=== PATIENT | male | born 1950 | race Caucasian/White ===

== ENCOUNTER → 2018-11-24 | Outpatient (CLI) | payer MEDICARE, OTHER | END | disposition home or self-care (01) | LOC: PLD 10:24 → LAB SHORT 10:24 | DX: C44.41 Basal cell carcinoma of skin of scalp and neck (principal) | CPT/HCPCS: 88305 ==

== ENCOUNTER → 2018-12-08 | Outpatient (CLI) | payer MEDICARE, OTHER | END | disposition home or self-care (01) | LOC: LAB SHORT 15:44 → PLD 15:44 | DX: D48.5 Neoplasm of uncertain behavior of skin (principal) | CPT/HCPCS: 88305 ==

== ENCOUNTER 2019-03-10 08:25 | Day surgery (SDC) | payer MEDICARE, OTHER ==
[~2019-03-10] VITALS: Ht 160 cm; Wt 65.5 kg
[~2019-03-10 08:25] MED LIST: THERA1 EACH PO
--- NOTE | 2019-03-10 09:01 | NUR ---
History, Chart, Medications and Allergies reviewed before start of procedure. Patient confirms NPO status and agrees with scheduled surgery. Pre-Op teaching done. Pt verbalizes understanding. Patient reports completing Chlorhexadine shower X2 prior to admission to hospital. Patient States Post-Procedure ride home has been arranged. LUNGS WITH SOME SCATTERED EXPIRATORY WHEEZES, SOME CLEARED WITH COUGH, SOME DID NOT. NO JEWELRY PRESENT AT ADMIT, NO CONTACTS OR GLASSES PRESENT, DENIES DENTURES.
--- NOTE | 2019-03-10 09:31 | NUR ---
TRACKER EXPLAINED AND OPPORTUNITY FOR QUESTIONS PROVIDED.
--- NOTE | 2019-03-10 09:38 | NUR ---
UPDATED PATIENT AND VISITOR.
--- NOTE | 2019-03-10 14:08 | NUR ---
Patient up to Ambulate independently. Gait steady. Discharged via wheelchair to private car for ride home. Discharge instructions reviewed with patient. Patient verbalizes understanding. Copy given to patient to take home.
[2019-03-14] MEDS ORDERED: Norco 5-325 Ta1 EACH PO (11:22)
== END 2019-03-10 23:15 | disposition home or self-care (01) ==
LOC: ORSCMMR 08:25 → ORD 10:00 → ORSCMMR 10:00
PROVIDERS: Surgery
PROC: 8E0W4CZ Robotic Assisted Procedure of Trunk Region, Percutaneous Endoscopic Approach (ICD-10-PCS; principal; 2019-03-10 10:00)
PROC: 0YUA4JZ Supplement Bilateral Inguinal Region with Synthetic Substitute, Percutaneous Endoscopic Approach (ICD-10-PCS; principal; 2019-03-10 10:00)
DX: K40.20 Bilateral inguinal hernia, without obstruction or gangrene, not specified as recurrent (principal); Z87.891 Personal history of nicotine dependence
CPT/HCPCS: 49650; S2900; A9270-GY; C1781; J0690; J1100; J1885; J2250; J2405; J2704; J2710; J3010; J7120

== ENCOUNTER 2019-03-11 19:21 | Emergency (ER) | payer MEDICARE, OTHER ==
[~2019-03-11] VITALS: Ht 160 cm; Wt 60.3 kg
[2019-03-11 23:17] LABS: Source, Urine Catheter
[2019-03-11 23:20] LABS: Bilirubin, Urine Neg (Neg); Blood, Urine 1+ (Neg); Glucose Qualitative, Urine Neg (Neg); Ketones, Urine Neg (Neg); Leukocyte Esterase, Urine Neg (Neg); Nitrite, Urine Neg (Neg); Protein, Urine Neg (Neg); Urobilinogen, Urine NORM (Normal)
[2019-03-11 23:30] LABS: Appearance, Urine Clear (Clear); Color, Urine Yellow (P-Yellow)
[2019-03-11 23:31] LABS: Bacteria Not Seen /hpf; Red Blood Cells, Urine 0-2 /hpf (0-2); Squamous Epithelial Cells Not Seen /hpf (Few); White Blood Cells, Urine Not Seen /hpf (0-5)
[2019-03-14] MEDS ORDERED: Norco 5-325 Ta1 EACH PO (11:22)
== END 2019-03-11 21:54 | disposition home or self-care (01) ==
LOC: ER 19:21
PROVIDERS: Emergency Medicine
DX: N99.89 Other postprocedural complications and disorders of genitourinary system (principal); R33.9 Retention of urine, unspecified
CPT/HCPCS: 51702; 51798; 81001; 99283-25

== ENCOUNTER → 2019-07-20 | Outpatient (CLI) | payer MEDICARE, OTHER ==
[~2019-07-20] MED LIST changes: +Norco 5-325 Ta1 EACH PO
== END | disposition home or self-care (01) ==
LOC: PLD 11:53 → LAB SHORT 11:53
DX: L72.8 Other follicular cysts of the skin and subcutaneous tissue (principal)
CPT/HCPCS: 88305

== ENCOUNTER 2020-03-30 15:28 | Emergency (ER) | payer MEDICARE, OTHER ==
[~2020-03-30] VITALS: Ht 162.6 cm; Wt 63.5 kg
[2020-03-30 16:31] LABS: BASOPHILS ABSOLUTE AUTO 0.08 K/mm3 (0.00-0.23); BASOPHILS PERCENT AUTO 1 % (0-2); EOSINOPHILS ABSOLUTE AUTO 0.52 K/mm3 (0.00-0.68); EOSINOPHILS PERCENT AUTO 6 % (0-6); Hematocrit 44.8 % (37.0-53.0); Hemoglobin 14.6 g/dL (13.5-17.5); IMMATURE GRAN ABSOLUTE AUTO 0.02 K/mm3 (0.00-0.10); IMMATURE GRAN PERCENT AUTO 0 % (0-1); LYMPHOCYTES ABSOLUTE AUTO 1.88 K/mm3 (0.84-5.20); LYMPHOCYTES PERCENT AUTO 22 % (21-46); MONOCYTES ABSOLUTE AUTO 0.69 K/mm3 (0.16-1.47); MONOCYTES PERCENT AUTO 8 % (4-13); Mean Corpuscular HGB 29.2 pg (26.0-34.0); Mean Corpuscular HGB Conc 32.6 g/dL (31.5-36.5); Mean Corpuscular Volume 90 fL (80-100); Mean Platelet Volume 8.9 fL (9.1-12.4); NEUTROPHILS PERCENT AUTO 63 % (41-73); Platelet Count 345 K/mm3 (150-400); RDW Coefficient Variation 13.6 % (11.7-14.2); RDW Standard Deviation 44.8 fL (35.1-46.3); White Blood Cell Count 8.49 K/mm3 (4.00-11.30)
[2020-03-30 16:52] LABS: Alanine Aminotransfer (ALT/SGP 19 U/L (12-78); Albumin, Blood 3.5 g/dL (3.4-5.0); Albumin/Globulin Ratio 1.1 (0.8-1.8); Alk Phos 78 U/L (50-136); Anion Gap 3 mmol/L (6-16); Aspartate Aminotrans (AST/SGOT 21 U/L (12-37); Bilirubin, Total 0.2 mg/dL (0.1-1.0); Blood Urea Nitrogen 21 mg/dL (8-24); Bun/Creatinine Ratio 18.1 (12.0-20.0); CO2, Blood 27 mmol/L (21-32); Calcium, Blood 9.1 mg/dL (8.5-10.1); Chloride, Blood 111 mmol/L (98-108); Creatinine, Blood 1.16 mg/dL (0.60-1.20); Globulin, Blood 3.1 g/dL (2.2-4.0); Glomerular Filtration Rate >60 (60-); Glucose, Blood 97 mg/dL (70-99); Potassium, Blood 4.3 mmol/L (3.5-5.5); Sodium, Blood 141 mmol/L (136-145); Total Protein, Blood 6.6 g/dL (6.4-8.2); Troponin I <0.015 ng/mL (0.000-0.040)
[2020-03-30] MEDS ORDERED: Aspir 8181 MG PO (18:13)
== END 2020-03-30 18:18 | disposition home or self-care (01) ==
LOC: ER 15:28
PROVIDERS: Physician Assistant
DX: Z00.00 Encounter for general adult medical examination without abnormal findings (principal); R42 Dizziness and giddiness
CPT/HCPCS: 36415; 71046; 80053; 84484; 85025; 93005; 93010; 99285-25

== ENCOUNTER → 2020-12-02 | Outpatient (CLI) | payer MEDICARE, OTHER ==
[~2020-12-02] MED LIST changes: +Aspir 8181 MG PO
== END ==
LOC: LAB SHORT 12:28 → LAB 12:28
DX: D48.5 Neoplasm of uncertain behavior of skin (principal); L72.0 Epidermal cyst
CPT/HCPCS: 88305

== ENCOUNTER → 2020-12-26 | Outpatient (CLI) | payer MEDICARE, OTHER | END | disposition home or self-care (01) | LOC: LAB SHORT 10:49 → LAB 10:49 | DX: L72.0 Epidermal cyst (principal) | CPT/HCPCS: 88304 ==

== ENCOUNTER → 2023-01-07 | Outpatient (CLI) | payer MEDICARE, OTHER | LOC: PLD 15:06 → LAB SHORT 15:06 | DX: L72.8 Other follicular cysts of the skin and subcutaneous tissue (principal) | CPT/HCPCS: 88304 ==

== ENCOUNTER 2023-10-28 06:11 | Inpatient (IN) | payer OTHER ==
[~2023-10-28] VITALS: Ht 162.6 cm; Wt 63.1 kg
[2023-10-28] VITALS (16 sets, daily range): BP systolic 109–155; BP diastolic 60–88
[~2023-10-28 06:11] MED LIST changes: +CENTRUM SILVER1 EAC2 PO
[2023-10-28] MEDS ORDERED: Ondansetron HCl 2 MG / ML 2ML Vial ONE (06:24)
[2023-10-28] MEDS ORDERED: FentaNYL Citrate 50 MCG/ML 2 ML Injection ONE ×3 (06:24→11:07)
[2023-10-28] MEDS ORDERED: Sugammadex Sodium 200 MG/2ML SDV (100 MG/ML) ONE (06:24)
[2023-10-28] MEDS ORDERED: propofoL 20 ML IV ONE (06:24)
[2023-10-28] MEDS ORDERED: Rocuronium Bromide 10 MG/ML 5ML Injection IV ONE ×2 (06:24→08:43)
[2023-10-28] MEDS ORDERED: Lidocaine HCl 2% 20 ML MDV ONE (06:24)
[2023-10-28] MEDS ORDERED: Dexamethasone Sod Phos 10 MG/ML 1ML VIAL ONE (06:24)
[2023-10-28] MEDS ORDERED: Heparin Sodium,Porcine 5,000 UNIT/0.5 ML SDV SC ONE (06:25)
[2023-10-28] MEDS ORDERED: CeFAZolin Sodium 2,000 MG in NS 100 ML IV SCH ×2 (06:25→16:00)
[2023-10-28] MEDS ORDERED: Lactated Ringer's 1,000 ML IV SCH ×2 (06:25→10:50)
[2023-10-28] MEDS ORDERED: MetroNIDAZOLE 500MG/NS 100 ml 100 ML IV SCH ×2 (06:25→16:00)
[2023-10-28] MEDS ORDERED: Acetaminophen 500 MG Tab PO SCH (06:25)
--- NOTE | 2023-10-28 06:47 | NUR ---
Ambulatory in Day Surgery History, Chart, Medications and Allergies reviewed before start of procedure.Lungs clear T/O to Auscultation. Patient confirms NPO status and agrees with scheduled surgery. Patient reports completing Chlorhexadine shower X2 prior to admission to hospital.Surgical site prepped with 2% Chlorhexidine cloth wipe.
[2023-10-28] MEDS ORDERED: Bupivacaine 0.5% HCl 5 MG/ML 30MLVIAL ONE (08:18)
[2023-10-28] MEDS ORDERED: Ondansetron HCl 2 MG / ML 2ML Vial IV PRN (10:50)
[2023-10-28] MEDS ORDERED: HYDROmorphone HCl/Pf 1MG SYR IV PRN (10:50)
[2023-10-28] MEDS ORDERED: Acetaminophen 325 MG TABLET PO SCH (12:00)
[2023-10-28] MEDS ORDERED: NS 250 ML IV PRN (15:15)
--- NOTE | 2023-10-28 16:40 | NUR ---
SHIFT SUMMARY S/P LAP COLECTOMY. POST OP VSS. CONT BIOX IN PLACE. WEANING OFF O2 TOLERATED. LAP SITES X4 TO ABD WITH GAUZE + TEGADERM CDI, UMBILICAL SITE WITH SCANT SS DRAINAGE. ABD BINDER IN PLACE. ENCOURAGING COUGHING AND DEEP BREATHING. IV DILAUDID + TYLENOL FOR PAIN CONTROL. MACKEY PATENT AND DRAINING. IVF + ABX PER ORDERS. SLOWLY ANGELA CLEAR LIQS. USING CALL LIGHT APPROPRIATELY.
[2023-10-28] MEDS ORDERED: Famotidine 20 MG Tab PO SCH (21:00)
[2023-10-29 02:21] VITALS: BP 106/65
--- NOTE | 2023-10-29 04:51 | NUR ---
SHIFT SUMMARY POD 1 R LAP HEMICOLECTOMY PT ABLE TO SLEEP T/O NIGHT. PAIN MANAGED PER EMAR. TOLERATING CL DIET, MACKEY DRAINING TO GRAVITY, YELLOW URINE. PT ABLE TO GET UP AND AMBULATE THIS AM. REPORTS FEELING MUCH BETTER THIS AM. X4 LAP SITES COVERED WITH GAUZE AND TEG, UMBILICAL GAUZE HAD SS DRAINAGE. VSS. NO OTHER CONCERNS AT THIS TIME, CALL LIGHT WITHIN REACH
[2023-10-29 05:16] LABS: BASOPHILS ABSOLUTE AUTO 0.02 K/mm3 (0.00-0.23); BASOPHILS PERCENT AUTO 0 % (0-2); EOSINOPHILS PERCENT AUTO 0 % (0-6); Hematocrit 37.7 % (37.0-53.0); Hemoglobin 12.5 g/dL (13.5-17.5); IMMATURE GRAN ABSOLUTE AUTO 0.03 K/mm3 (0.00-0.10); IMMATURE GRAN PERCENT AUTO 0 % (0-1); LYMPHOCYTES ABSOLUTE AUTO 1.43 K/mm3 (0.84-5.20); LYMPHOCYTES PERCENT AUTO 15 % (21-46); MONOCYTES ABSOLUTE AUTO 0.97 K/mm3 (0.16-1.47); MONOCYTES PERCENT AUTO 10 % (4-13); Mean Corpuscular HGB 29.1 pg (26.0-34.0); Mean Corpuscular HGB Conc 33.2 g/dL (31.5-36.5); Mean Corpuscular Volume 88 fL (80-100); Mean Platelet Volume 9.4 fL (9.1-12.4); NEUTROPHILS ABSOLUTE AUTO 7.16 K/mm3 (1.96-9.15); NEUTROPHILS PERCENT AUTO 75 % (41-73); Platelet Count 283 K/mm3 (150-400); RDW Coefficient Variation 14.5 % (11.7-14.2); RDW Standard Deviation 46.6 fL (35.1-46.3); Red Blood Cell Count 4.29 M/mm3 (4.30-5.90); White Blood Cell Count 9.61 K/mm3 (4.00-11.30)
[2023-10-29 06:01] LABS: Bun/Creatinine Ratio 16.5 (12.0-20.0); Creatinine, Blood 0.97 mg/dL (0.60-1.20); Potassium, Blood 4.5 mmol/L (3.5-5.5)
[2023-10-29 07:22] VITALS: BP 115/65
[2023-10-29] MEDS ORDERED: Enoxaparin 40 MG/0.4 ML SYR SC SCH (09:00)
[2023-10-29] MEDS ORDERED: HYDROcodone 5-APAP 325 TAB PO PRN (09:30)
[2023-10-29 14:36] VITALS: BP 118/67
--- NOTE | 2023-10-29 17:40 | NUR ---
SHIFT SUMMARY POD 1 LAP COLECTOMY. PT DOING WELL AND REP FEELING BETTER. ANGELA CLEAR LIQ DIET. DENIES FLATUS YET. IVF INFUSING PER ORDERS. LAP SITES X4 TO ABD REMAIN DRY AND INTACT; UMBILICAL SITE WITH SCANT OLD DRY SS DRAINAGE. ABD BINDER + KPAD TO ABD FOR COMFORT. TYLENOL + NORCO FOR PAIN MANAGEMENT. AMBULATES HALLWAY INDEP WITH FWW AND UP TO CHAIR FOR MEALS. VSS. FRIEND AT BEDSIDE FOR SUPPORT. USES CALL LIGHT APPROPRIATELY.
[2023-10-29 19:23] VITALS: BP 120/61
[2023-10-30 04:16] VITALS: BP 143/70
--- NOTE | 2023-10-30 04:54 | NUR ---
SHIFT SUMMARY POD 2 LAP R HEMICOLECTOMY PT ABLE TO SLEEP DURING THE NIGHT. PAIN MANAGED PER EMAR. X4 LAP SITES, COVERED WITH GAUZE AND TEG. UMBILICAL SITE HAS DRAINAGE UNCHANGED FROM PREVIOUS SHIFT, OTHERWISE INTACT. PT IND IN THE RM, AMB TO THE BR. TOLERATING CL DIET, VOIDING. REPORTS NOT PASSING ANY GAS AT THIS TIME BUT CAN FEEL HIS BOWELS MOVING. VSS NO OTHER CONCERNS AT THIS TIME, CALL LIGHT WITHIN REACH
[2023-10-30 07:39] VITALS: BP 154/80
[2023-10-30] MEDS ORDERED: OxyCODONE 5 mg/Acetamin 325 mg TABLET PO PRN (13:05)
[2023-10-30 14:00] VITALS: BP 123/67
[2023-10-30 14:52] VITALS: BP 129/83
--- NOTE | 2023-10-30 17:14 | NUR ---
SHIFT SUMMARY PATIENT WITH NO ACUTE EVENTS DURING SHIFT. HE IS UP WALKING WITH WALKER AD ANGEL THIS AFTERNOON AND DENIES ANY DIZZINESS OR LIGHTHEADEDNESS. HE IS ORIENTEDX4 AND COOPERATIVE WITH CARE. BED IN LOW POSITION, HE IS ABLE TO MAKE HIS NEEDS KNOWN. WILL CONTINUE TO MONITOR.
[2023-10-30 20:04] VITALS: BP 118/77
--- NOTE | 2023-10-30 22:05 | NUR ---
ASSUMPTION OF CARE: PATIENT IS ALERT AND ORIENTED X 4. PLEASANT, COOPERATIVE AND ABLE TO MAKE NEEDS KNOWN. ABD BINDER IN PLACE SURGICAL SITES C/D/I, PAIN UNDER CONTROL PER MAR. PATIENT HAS BEEN AMBULATING WELL WITH USE OF FWW. IND. TOLERATING CLEAR LIQUIDS WELL. IV INFILTRATED AT BEGINNING OF THE SHFIT. NEW ONE PLACED BY SHANK INSPECTOR. PATIENT WITH NO ACUTE CONCERN, 1L VIA NC WHILE SLEEPING WITH CONTINUOUS PULSE OXIMETRY IN PLACE. DENIES CHEST PAIN PRESSURE, BOWEL TONES ACTIVE, AND PASSING GAS. DECREASED CRAMPING NOTED.
[2023-10-31 03:50] VITALS: BP 123/75
[2023-10-31 05:54] VITALS: BP 139/85
--- NOTE | 2023-10-31 06:50 | NUR ---
EOS: PATIETN WOKE UP A LITTLE SHAKY, CBG OBTAINED, 119. NORMOTENSIVE, AFEBRILE SPO2 94%, AND ID [id number]. NO ACUTE CONCERN, SUBSIDED WITH REST. DENIED CHEST PAIN PRESSURE OR SOB. INCREASED URINE OUTPUT ADN FLATULANCE. IMPROVED OVERALL THROUGH THE NIGHT, PLENTY OF EDUCATION ABOUT CURRENT ILLNESS AND PLAN.
[2023-10-31 07:27] VITALS: BP 150/85
[2023-10-31 14:56] VITALS: BP 108/72
--- NOTE | 2023-10-31 16:17 | NUR ---
SHIFT SUMMARY POD3 R LAP LAYO COLLECTOMY, A/OX4, VSS, TOLERATING DIET, AMBULATES IN THE HALLS WITH FWW, PAIN MANAGED PER EMAR, 2 BM THIS SHIFT. NO ACUTE EVENTS THIS SHIFT, CALL LIGHT IN REACH.
[2023-10-31 18:46] VITALS: BP 129/79
[2023-11-01 04:33] VITALS: BP 131/69
[2023-11-01 07:04] VITALS: BP 138/78
--- NOTE | 2023-11-01 08:34 | NUR ---
SHIFT SUMMARY POD #4 A&O X4, VSS, RA, ANGELA FULL LIQUID DIET, VOIDING WNL, PASSING FLATUS, MULTIPLE BM'S REPORTED POST OP, LAP SITES X4, C/D/I, PT IND IN ROOM, AMBULATING IN HALLS W/FWW. PAIN MANAGED PER EMAR, BEDSIDE REPORT GIVEN TO RN, CALL LIGHT IN REACH
[2023-11-01 09:03] LABS: Hematocrit 37.5 % (37.0-53.0); Hemoglobin 12.5 g/dL (13.5-17.5)
[2023-11-01] MEDS ORDERED: Norco 5-325 Ta1 EACH PO (09:55)
--- NOTE | 2023-11-01 10:50 | NUR ---
DISCHARGE PT EXCITED & FEELS READY FOR DC. TOLERATING FULL LQs & PLANS TO STILL HAVE A FLUID BASED DIET FOR 1-2 DAYS BEFORE TRYING SOLID FOODS. AMBULATING FREQ & STEADILY. PAIN WELL CONTROLLED. DECLINES WC & AMBULATES OUT.
== END 2023-11-01 12:40 | disposition home or self-care (01) | DRG 331 ==
LOC: MEDS 06:11 → PRE IP 08:00 → SURS 11:28
PROVIDERS: ADMIT Surgery
PROC: 0DTF4ZZ Resection of Right Large Intestine, Percutaneous Endoscopic Approach (ICD-10-PCS; principal; 2023-10-28 08:00)
DX: D12.0 Benign neoplasm of cecum (principal); H91.93 Unspecified hearing loss, bilateral; G47.33 Obstructive sleep apnea (adult) (pediatric); Z98.890 Other specified postprocedural states; Z79.899 Other long term (current) drug therapy; Z91.048 Other nonmedicinal substance allergy status; Z87.891 Personal history of nicotine dependence
CPT/HCPCS: 36415; 80048; 82947; 85014; 85018; 85025; 86850; 86900; 86901; 88307; 94760; 94762; A9270; J0690; J1100; J1170; J1644; J1650; J2405; J2704; J3010; J7120

== ENCOUNTER 2024-01-10 12:15 | Emergency (ER) | payer OTHER ==
[~2024-01-10] VITALS: Ht 170.2 cm; Wt 65.0 kg
[2024-01-10 14:42] LABS: BASOPHILS ABSOLUTE AUTO 0.07 K/mm3 (0.00-0.23); BASOPHILS PERCENT AUTO 1 % (0-2); EOSINOPHILS ABSOLUTE AUTO 0.28 K/mm3 (0.00-0.68); EOSINOPHILS PERCENT AUTO 5 % (0-6); Hematocrit 40.5 % (37.0-53.0); Hemoglobin 13.4 g/dL (13.5-17.5); IMMATURE GRAN ABSOLUTE AUTO 0.02 K/mm3 (0.00-0.10); IMMATURE GRAN PERCENT AUTO 0 % (0-1); LYMPHOCYTES ABSOLUTE AUTO 1.77 K/mm3 (0.84-5.20); LYMPHOCYTES PERCENT AUTO 32 % (21-46); MONOCYTES PERCENT AUTO 9 % (4-13); Mean Corpuscular HGB 29.3 pg (26.0-34.0); Mean Corpuscular HGB Conc 33.1 g/dL (31.5-36.5); Mean Corpuscular Volume 88 fL (80-100); Mean Platelet Volume 9.4 fL (9.1-12.4); NEUTROPHILS ABSOLUTE AUTO 2.83 K/mm3 (1.96-9.15); NEUTROPHILS PERCENT AUTO 52 % (41-73); Platelet Count 388 K/mm3 (150-400); RDW Coefficient Variation 14.6 % (11.7-14.2); RDW Standard Deviation 46.6 fL (35.1-46.3); Red Blood Cell Count 4.58 M/mm3 (4.30-5.90); White Blood Cell Count 5.47 K/mm3 (4.00-11.30)
[2024-01-10 14:53] LABS: Albumin, Blood 3.6 g/dL (3.4-5.0); Albumin/Globulin Ratio 1.1 (0.8-1.8); Bilirubin, Total 0.4 mg/dL (0.1-1.0); Bun/Creatinine Ratio 17.7 (12.0-20.0); Calcium, Blood 9.9 mg/dL (8.5-10.1); Creatinine, Blood 0.96 mg/dL (0.60-1.20); Globulin, Blood 3.2 g/dL (2.2-4.0); Magnesium, Blood 2.5 mg/dL (1.6-2.4); Potassium, Blood 4.2 mmol/L (3.5-5.5); Total Protein, Blood 6.8 g/dL (6.4-8.2)
[2024-01-10 16:45] VITALS: BP 113/70
[2024-01-10 17:27] LABS: Influenza A, PCR NEGATIVE (NEGATIVE); Influenza B, PCR NEGATIVE (NEGATIVE); Resp Syncytial Virus, PCR NEGATIVE (NEGATIVE); SARS-Cov-2 (COVID-19) PCR, MMC NEGATIVE (NEGATIVE)
== END 2024-01-10 17:58 | disposition home or self-care (01) ==
LOC: ER 12:15
PROVIDERS: Student in an Organized Health Care Education/Training Program
DX: R07.2 Precordial pain (principal); R42 Dizziness and giddiness; Z86.79 Personal history of other diseases of the circulatory system; Z91.018 Allergy to other foods
CPT/HCPCS: 0241U; 80053; 83735; 84484; 85025

== ENCOUNTER 2024-06-01 11:56 | Day surgery (SDC) | payer OTHER ==
[~2024-06-01] VITALS: Ht 157.5 cm; Wt 67.3 kg
[~2024-06-01 11:56] MED LIST changes: +Lactated Ringer's 1,000 ML ONE
[2024-06-01] MEDS ORDERED: Ondansetron HCl 2 MG / ML 2ML Vial ONE (11:57)
[2024-06-01] MEDS ORDERED: propofoL 50 ML IV ONE (11:57)
[2024-06-01] MEDS ORDERED: Glycopyrrolate 0.2 MG/ML 1MLVIAL ONE (11:57)
[2024-06-01] MEDS ORDERED: ePHEDrine Sulfate 50 MG/ML 1ML Injection ONE (11:57)
[2024-06-01] MEDS ORDERED: Lactated Ringer's 1,000 ML IV ONE ×2 (11:58→13:08)
[2024-06-01] MEDS ORDERED: Lidocaine 2% 5 ML SDV ONE (12:01)
[2024-06-01] MEDS ORDERED: DONEPEZIL HCL10 MG (12:01)
[2024-06-01] MEDS ORDERED: Bentyl10 MG (12:02)
[2024-06-01] MEDS ORDERED: OMEP20ER (12:02)
[2024-06-01] MEDS ORDERED: Lidocaine HCl/Pf 1% 5 ML VIAL ONE (12:02)
--- NOTE | 2024-06-01 13:10 | NUR ---
06/01/24 1310 Tania Corcoran PT. DENIES ANY PAIN
[2024-06-01 14:24] VITALS: BP 112/70
== END 2024-06-01 14:15 | disposition home or self-care (01) ==
LOC: ORSCSDS 11:56
PROVIDERS: Surgery
PROC: 0DB48ZX Excision of Esophagogastric Junction, Via Natural or Artificial Opening Endoscopic, Diagnostic (ICD-10-PCS; principal; 2024-06-01 15:00)
PROC: 0DB98ZX Excision of Duodenum, Via Natural or Artificial Opening Endoscopic, Diagnostic (ICD-10-PCS; principal; 2024-06-01 15:00)
PROC: 0DB78ZX Excision of Stomach, Pylorus, Via Natural or Artificial Opening Endoscopic, Diagnostic (ICD-10-PCS; principal; 2024-06-01 15:00)
PROC: 0DB58ZX Excision of Esophagus, Via Natural or Artificial Opening Endoscopic, Diagnostic (ICD-10-PCS; principal; 2024-06-01 15:00)
DX: R10.13 Epigastric pain (principal); K21.9 Gastro-esophageal reflux disease without esophagitis; R11.0 Nausea; K29.50 Unspecified chronic gastritis without bleeding; K22.70 Barrett's esophagus without dysplasia; I48.91 Unspecified atrial fibrillation; G47.33 Obstructive sleep apnea (adult) (pediatric); Z79.899 Other long term (current) drug therapy; Z79.82 Long term (current) use of aspirin; Z87.891 Personal history of nicotine dependence
CPT/HCPCS: 88305; 88342; J2003; J2405; J2704; J7120